=== PATIENT | female | born 1955 | race Caucasian/White ===

== ENCOUNTER 2016-06-28 20:10 | Inpatient (IN) | payer OTHER ==
--- NOTE | ~2016-06-28 | DS ---
Unit #: [id number] #: [id number] Patient: DIOGO PRESLEY [id number] [address] [address] [id number] I MR#: [id number] NAME: DIOGO PRESLEY ROOM: [facility] Age: 60 Sex: F Admission Date: 06/28/2016 : 1955 Discharge Date: 06/30/2016 Attending Physician: Arnold Carmichael M.D. DISCHARGE SUMMARY FINAL DIAGNOSES 1. Bronchitis. 2. Urinary tract infection. SECONDARY DIAGNOSIS Tobaccoism. HOSPITAL COURSE The patient is a pleasant 60-year-old female who presented with some shortness of breath. She was seen through the emergency room. She had some hypoxia; hence, her admission. She was admitted and managed. During admission she was currently receiving Macrobid for urinary tract infection as an outpatient. She still had nitrites in her urine at presentation at an outside ER. Urine culture is unavailable at the time of this dictation. She has been on Rocephin. She is evaluated, suitable and stable for discharge, and she is not hypoxic at this time. Although I do not have any culture to go by, I will go ahead and recollect urine today and send for culture prior to discharge, and I will discharge her home empirically on Vantin 200 mg p.o. b.i.d. for 7 days. She will schedule followup with her PCP in the next 3-5 days. MEDICATIONS ON DISCHARGE 1. Vantin 200 mg p.o. b.i.d. for 7 days. 2. Humibid LA 600 mg p.o. b.i.d. for 7 days. 3. Albuterol HFA 2 puffs q.i.d. p.r.n. DISCHARGE CONDITION She will be discharged in stable condition. NOTE: Time spent coordinating discharge was about 20 minutes. Dictated by... Dorothy Solares TD: 06/30/2016 11:57 JOB #: [id number] Unit #: [id number] #: [id number] Patient: DIOGO PRESLEY DISCHARGE SUMMARY Page 1 of 1 X Arnold Carmichael MD SUMMARY
--- NOTE | ~2016-06-28 | HP ---
Unit #: [id number] #: [id number] Patient: DIOGO PRESLEY [id number] [address] [place], [place] [address] [id number] I MR#: [id number] NAME: DIOGO PRESLEY ROOM: 55 Age: 60 Sex: F Admission Date: 06/28/2016 : 1955 Attending Physician: Jany Gomez M.D. HISTORY AND PHYSICAL CHIEF COMPLAINT Bronchitis with acute hypoxic respiratory failure and urinary tract infection. HISTORY OF PRESENT ILLNESS This pleasant 60-year-old female with frequent UTIs and status post gastric bypass was transferred from [facility] Emergency Department for acute hypoxic respiratory failure. The patient states that she was well until five days ago when she developed fevers, chills, and dysuria. She also noted a deep cough productive of yellow sputum with increasing shortness of breath and weakness. She saw her primary care physician who prescribed Macrobid. Due to increasing shortness of breath, she presented to [facility] where she was noted to be hypoxic with O2 saturations of 80%. In the course of her evaluation, she was found to still have a mild UTI, chest x-ray negative. She was treated with one gram of Rocephin, DuoNebs, ibuprofen, a liter of fluid, 500 mg of IV Levaquin, and Tylenol. Her temperature was as high as 102.4 degrees. Chest x-ray shows no acute disease. She currently is breathing easier after the DuoNeb. She does smoke one and a half packs per day of tobacco. Denies history of chronic lung disease. PAST MEDICAL HISTORY 1. Frequent UTIs. 2. Total abdominal hysterectomy. 3. Gastric bypass. 4. Cholecystectomy. ALLERGIES CIPRO, CODEINE, AND BACTRIM. HOME MEDICATIONS Macrobid. FAMILY HISTORY Colon cancer, CAD, and possibly asthma. SOCIAL HISTORY The patient lives with her and son. She smokes one and a half packs per day of tobacco and has been smoking since age 18. She does not drink alcohol or use illicit drugs. Unit #: [id number] #: [id number] Patient: DIOGO PRESLEY REVIEW OF SYSTEMS Notable for fevers, weakness, shortness of breath, cough, dysuria, frequent UTIs, tobacco abuse, and above-mentioned surgeries. All other systems were reviewed and are otherwise negative. PHYSICAL EXAMINATION GENERAL: A very pleasant 60-year-old female currently in no acute distress. VITAL SIGNS: Temperature was as high as 102.4. Her O2 saturations were as low as 80% on room air. Current vital signs: Temperature 98.3, pulse 66, respirations 18, blood pressure 106/50, and O2 saturation 94%. Blood sugar 107. HEENT: Eyes PERRLA. Extraocular muscles are intact. Pharynx with poor dentition. NECK: Supple without adenopathy or thyromegaly. CHEST: Mild expiratory wheeze. BACK: Without CVA tenderness. CARDIAC: Normal S1 and S2 without S3, S4, or murmur. ABDOMEN: Bowel sounds are present. No hepatosplenomegaly, tenderness, or masses. EXTREMITIES: Without clubbing, cyanosis, or edema. Pedal pulses are present. NEUROLOGIC: Patient is awake, alert, and oriented. Cranial nerves are intact. Equal strength throughout. DIAGNOSTIC STUDIES LABORATORY: Pertinent labs from [facility] that were told to me on the phone as we did not have the initial papers from [facility] include hematocrit 38.2 and white blood count 9.9. SMA-12 notable for a glucose of 165 and calcium 8.4. Urinalysis nitrite positive and positive for protein and glucose, 2+ bacteria, yeast, 5-10 white cells, and 5-10 red cells. IMAGING: Chest x-ray with no acute disease. CARDIOLOGY: EKG shows a sinus tachycardia rate [address] wave abnormalities. ASSESSMENT 1. Bronchitis with acute hypoxic respiratory failure and likely underlying chronic obstructive pulmonary disease. 2. Urinary tract infection possibly failing outpatient treatment. Yeast is also noted in the urine. 3. Tobacco abuse. 4. Status post gastric bypass and cholecystectomy. PLANS 1. Will review medical records from [facility] ER as they just arrived as I was dictating this note. 2. Obtain EKG and repeat labs in the morning. 3. Doxycycline and Rocephin for now. 4. Mucolytics and bronchodilators. 5. Smoking cessation counseling. 6. IV fluids. 7. DVT prophylaxis. 8. Will give one dose of Diflucan. 9. Further workup depending on above. 1. Unit #: [id number] #: [id number] Patient: DIOGO PRESLEY Dictated by Adriana Fang M.D. AML/am TD: 06/28/2016 21:24 JOB #: [id number] CC: Erin Dao M.D. HISTORY AND PHYSICAL Page 1 of 1 X Adriana Fang MD X HISTORY AND PHYSICAL
--- NOTE | ~2016-06-28 | EKG ---
PATIENT: DIOGO PRESLEY UNIT #: [id number] Ventricular Rate: 53 BPM Atrial Rate: 53 BPM P-R Interval: 122 ms QRS Duration: 82 ms Q-T Interval: 424 ms QTC Calculation(Bezet): 397 ms P Seminary: 27 degrees Calculated R Seminary: 34 degrees Calculated T Seminary: -2 degrees Diagnosis Line: Sinus bradycardia Diagnosis Line: Otherwise normal ECG Diagnosis Line: No previous ECGs available Diagnosis Line: Confirmed by JAYSON LIRA MD ([id number]) on 06/29/2016 Diagnosis Line: 4:41:58 PM INTERPRETING MD: SORAYA STEVENS
[2016-06-28] MEDS ORDERED: ALBUTEROL17 GM INH (20:27)
[2016-06-29 04:59] LABS: HEMATOCRIT 34.7 % (35.0-45.0); HEMOGLOBIN 10.9 gm/dL (12.0-16.0); MEAN CELL VOLUME 80.4 FL (83-96); MEAN CORPUSCULAR HEMOGLOBIN 25.2 PG (28-34); MEAN CORPUSCULAR HGB CONC 31.4 g/dL (30-36); MEAN PLATELET VOLUME 9.2 FL (6.5-11.5); RED BLOOD COUNT 4.32 X10e (3.90-5.30); WHITE BLOOD COUNT 4.6 X10e3 (4.0-10.5)
[2016-06-29 05:13] LABS: INR 1.1; PROTHROMBIN TIME (PATIENT) 11.4 SECONDS (9.6-11.5)
[2016-06-29 05:39] LABS: ALBUMIN SERUM 3.1 g/dL (3.5-5.0); BILIRUBIN,TOTAL 0.5 mg/dL (0.2-2.0); CALCIUM SERUM 7.9 mg/dL (8.4-10.2); CREATININE SERUM 0.5 mg/dL (0.6-1.4); GLOM FILT RATE Estimated 106.7 mL/min (>60); POTASSIUM 3.6 mmol/L (3.5-5.1); PROTEIN TOTAL SERUM 6.3 g/dL (6.0-8.3)
[2016-06-29 06:10] LABS: MB 1.8 ng/ml
[2016-06-30 04:53] LABS: HEMATOCRIT 34.4 % (35.0-45.0); MEAN CELL VOLUME 79.1 FL (83-96); MEAN CORPUSCULAR HEMOGLOBIN 25.2 PG (28-34); MEAN CORPUSCULAR HGB CONC 31.9 g/dL (30-36); MEAN PLATELET VOLUME 8.5 FL (6.5-11.5); RED BLOOD COUNT 4.35 X10e (3.90-5.30); RED CELL DISTRIBUTION WIDTH 16.9 % (11.0-15.5); WHITE BLOOD COUNT 5.7 X10e3 (4.0-10.5)
[2016-06-30 05:47] LABS: BUN/CREATININE RATIO 17.14; CALCIUM SERUM 8.3 mg/dL (8.4-10.2); CREATININE SERUM 0.7 mg/dL (0.6-1.4); GLOM FILT RATE Estimated 95.5 mL/min (>60); POTASSIUM 3.8 mmol/L (3.5-5.1)
[2016-06-30] MEDS ORDERED: VANTIN200 MG PO (12:11)
[2016-06-30] MEDS ORDERED: HUMIBID-LA600 MG PO (12:13)
[2016-06-30 12:53] LABS: URINE APPEARANCE CLEAR; URINE BILIRUBIN NEG (NEG); URINE BLOOD NEG (NEG); URINE COLOR YELLOW; URINE GLUCOSE NEG (NEG); URINE KETONE NEG (NEG); URINE LEUKOCYTE ESTERASE NEG (NEG); URINE NITRATE NEG (NEG); URINE PROTEIN NEG (NEG); URINE SPECIFIC GRAVITY 1.022 (1.003-1.035); URINE UROBILINOGEN 0.2 MG/DL (NEG)
[2016-06-30 13:19] LABS: CULTURE INDICATED? NO
== END 2016-06-30 13:30 | disposition home or self-care (01) | DRG 189 ==
LOC: C5B 20:10
PROVIDERS: Family Medicine; Internal Medicine
DX: J96.01 Acute respiratory failure with hypoxia (principal); B37.49 Other urogenital candidiasis; J20.9 Acute bronchitis, unspecified; F17.210 Nicotine dependence, cigarettes, uncomplicated; Z87.440 Personal history of urinary (tract) infections; Z90.710 Acquired absence of both cervix and uterus; Z90.49 Acquired absence of other specified parts of digestive tract; Z88.1 Allergy status to other antibiotic agents; Z88.5 Allergy status to narcotic agent; Z82.49 Family history of ischemic heart disease and other diseases of the circulatory system; Z80.9 Family history of malignant neoplasm, unspecified
CPT/HCPCS: 80048; 80053; 81003; 82550; 82553; 82947; 84484; 85027; 85610; 93005; 94640; 94760; J0696; J1650